=== PATIENT | male | born 1980 | race Caucasian/White ===

== ENCOUNTER 2017-07-13 17:39 | Observation (INO) | payer BC ==
[2017-07-13] MEDS ORDERED: NS 100 ML IV 100 ML IV ONE (17:50)
--- NOTE | 2017-07-13 18:33 | CT ---
HISTORY: Suspected appendicitis, patient complains of right lower quadrant pain Study: CT abdomen and pelvis with IV and oral contrast Comparison: No priors Technique: Multiple axial images of the abdomen and pelvis were obtained from the lung bases to the pubic symphy sis during the administration of IV contrast. Oral contrast materials were also given. Coronal and s agittal images are also reviewed. Dose reduction techniques utilized automatic exposure control. Findings: The visualized portions of the lung bases are unremarkable. There is low attenuation density througho ut the liver, compatible with steatosis. No mass or ductal ectasia is seen. The spleen, pancreas, kid neys, and adrenal glands are unremarkable in their CT appearance. The gallbladder is contracted. No e vidence of gallstone is seen.. No significant mesenteric lymphadenopathy or stranding can be observe d. No free fluid or free air is seen within the abdomen. No bowel wall thickening or bowel dilatati on is present. Appendix is at the upper limits of normal in size measuring about 7.5 mm in diameter. No evidence of significant periappendiceal stranding or fluid collection is seen. The findings are co nsidered equivocal for appendicitis. Uncomplicated appearing sigmoid colon diverticulosis is seen. N o evidence of diverticulitis, abscess or fluid is seen.. The urinary bladder is grossly unremarkable. The bony structures are grossly intact. IMPRESSION: Upper limits normal diameter of the appendix (7.5 mm). The absence of periappendiceal inflammatory ch anges makes this finding is equivocal for appendicitis. No evidence of periappendiceal fluid is seen. Uncomplicated appearing sigmoid colon diverticulosis. Hepatic steatosis. Reported By:
[2017-07-13] MEDS ORDERED: ZOFRAN INJ 4 MG VIAL IVP PRN (19:29)
[2017-07-13] MEDS ORDERED: MORPHINE SULFATE INJ 2 MG INJ IVP PRN (19:29)
[2017-07-13 20:06] VITALS: BMI 37.8
[2017-07-13 20:21] LABS: BASOPHILS # (AUTO) 0.1 X10^3/uL (0.0-0.1); BASOPHILS % (AUTO) 0.8 % (0.2-1.0); EOSINOPHILS # (AUTO) 0.1 x10^3/uL (0.0-0.2); EOSINOPHILS % (AUTO) 1.6 % (0.9-2.9); HEMATOCRIT 43.9 % (42.0-54.0); HEMOGLOBIN 15.4 g/dL (13.5-18.0); LYMPHOCYTES # (AUTO) 1.8 X10^3/uL (1.3-2.9); LYMPHOCYTES % (AUTO) 26.7 % (21.0-51.0); MEAN CORPUSCULAR HEMOGLOBIN 28.1 pg (27.0-34.0); MEAN CORPUSCULAR VOLUME 80.4 fL (80.0-100.0); MEAN PLATELET VOLUME 9.1 fL (7.4-11.0); MONOCYTES # (AUTO) 0.5 x10^3/uL (0.3-0.8); MONOCYTES % (AUTO) 7.3 % (0.0-13.0); NEUTROPHILS # (AUTO) 4.3 x10^3/uL (2.2-4.8); NEUTROPHILS % (AUTO) 63.6 % (42.0-75.0); PLATELET COUNT 244 X10^3/uL (150.0-450.0); RED BLOOD COUNT 5.47 X10^6/uL (4.7-6.0); RED CELL DISTRIBUTION WIDTH 13.8 % (11.6-16.5); WHITE BLOOD COUNT 6.8 X10^3/uL (3.6-10.0)
[2017-07-13 20:31] LABS: ALANINE AMINOTRANSFERASE 84 Units/L (12-78); ALBUMIN 4.2 g/dL (3.4-5.0); ALKALINE PHOSPHATASE 82 Units/L (46-116); BLOOD UREA NITROGEN 18 mg/dL (7-18); CALCIUM 8.7 mg/dL (8.5-10.1); CARBON DIOXIDE 28.6 mmol/L (21-32); CHLORIDE 100 mmol/L (98-107); COR NA(FOR HYPERGLY) 137 mmol/L (136-145); CREATININE 1.11 mg/dL (0.70-1.30); SODIUM 136 mmol/L (136-145); TOTAL PROTEIN 8.5 g/dL (6.4-8.2); eGFR BLACK RACES > 60 (>60); eGFR NON BLACK RACES > 60 (>60)
[2017-07-13 20:49] LABS: ASPARTATE AMINO TRANSFERASE 39 Units/L (15-37)
[2017-07-13] MEDS: NS 1000 ML 1,000 ML IV SCH (20:51)
[2017-07-13 21:35] LABS: AMYLASE 83 Units/L (25-115); LIPASE 152 Units/L (73-393)
--- NOTE | 2017-07-13 22:16 | RAD ---
Chest, one view Indication: Preoperative evaluation for appendectomy Comparison: None Findings: Heart size is normal. Lungs are mildly hypoinflated but clear. No pleural effusion or pneum othorax identified. There is no acute osseous abnormality. Impression: No acute chest process. Reported By:
[2017-07-14] MEDS: NS 1000 ML 1,000 ML IV SCH ×2 (03:17→10:01)
[2017-07-14 06:17] LABS: BASOPHILS % (AUTO) 0.6 % (0.2-1.0); EOSINOPHILS # (AUTO) 0.2 x10^3/uL (0.0-0.2); EOSINOPHILS % (AUTO) 2.2 % (0.9-2.9); HEMATOCRIT 43.9 % (42.0-54.0); HEMOGLOBIN 14.9 g/dL (13.5-18.0); LYMPHOCYTES # (AUTO) 2.3 X10^3/uL (1.3-2.9); LYMPHOCYTES % (AUTO) 33.5 % (21.0-51.0); MEAN CORPUSCULAR HEMOGLOBIN 27.9 pg (27.0-34.0); MEAN PLATELET VOLUME 10.1 fL (7.4-11.0); MONOCYTES # (AUTO) 0.5 x10^3/uL (0.3-0.8); MONOCYTES % (AUTO) 7.2 % (0.0-13.0); NEUTROPHILS # (AUTO) 3.9 x10^3/uL (2.2-4.8); NEUTROPHILS % (AUTO) 56.5 % (42.0-75.0); PLATELET COUNT 213 X10^3/uL (150.0-450.0); RED BLOOD COUNT 5.35 X10^6/uL (4.7-6.0); RED CELL DISTRIBUTION WIDTH 13.6 % (11.6-16.5)
[2017-07-14 06:18] LABS: ALANINE AMINOTRANSFERASE 74 Units/L (12-78); ALBUMIN 3.7 g/dL (3.4-5.0); ALKALINE PHOSPHATASE 74 Units/L (46-116); ASPARTATE AMINO TRANSFERASE 29 Units/L (15-37); BLOOD UREA NITROGEN 14 mg/dL (7-18); CALCIUM 8.5 mg/dL (8.5-10.1); CARBON DIOXIDE 28.2 mmol/L (21-32); CHLORIDE 104 mmol/L (98-107); COR NA(FOR HYPERGLY) 141 mmol/L (136-145); CREATININE 1.04 mg/dL (0.70-1.30); SODIUM 140 mmol/L (136-145); TOTAL PROTEIN 7.7 g/dL (6.4-8.2); eGFR BLACK RACES > 60 (>60); eGFR NON BLACK RACES > 60 (>60)
[2017-07-14 06:43] LABS: PLATELET MORPHOLOGY COMMENT NORMAL (NORMAL)
--- NOTE | 2017-07-14 08:15 | DR.UPDATE ---
H&P Update History and Physical Update: WAS SEEN IN THE OFFICE TODAY FOR ABDOMINAL PAIN. HE WAS SENT FOR AN OUTPATIENT ABD/PELVIS CT WHICH REVEALED ACUTE APPENDICITIS. HE WAS ADMITTED FOR FURTHER EVALUATION AND TREATMENT. WE WILL OBTAIN A SURGICAL CONSULT. H&P WAS COMPLETED PRIOR TO ADMISSION. PATIENT HAS BEEN SEEN AND EXAMINED WITH NO CHANGES NOTED TO H&P. Changes noted: NO Yes with the following:
[2017-07-14] MEDS ORDERED: QUELICIN (OR ANECTINE) ONE (10:42)
[2017-07-14] MEDS ORDERED: ZOFRAN INJ 4 MG VIAL ONE (10:42)
[2017-07-14] MEDS ORDERED: XYLOCAINE 2 % (PLAIN) ONE (10:42)
[2017-07-14] MEDS ORDERED: DIPRIVAN VIAL ONE (10:42)
[2017-07-14] MEDS ORDERED: ROBINUL ONE (10:42)
[2017-07-14] MEDS ORDERED: TORADOL 30 MG VIAL ONE (10:42)
[2017-07-14] MEDS ORDERED: VERSED ONE (10:42)
[2017-07-14] MEDS ORDERED: SUPRANE IN ONE (10:42)
[2017-07-14] MEDS ORDERED: NORCURON INJ 10 MG VIAL ONE (10:42)
[2017-07-14] MEDS ORDERED: NEOSTIGMINE INJ ONE (10:42)
--- NOTE | 2017-07-14 12:26 | US ---
Right upper quadrant sonogram Indication: Right lower quadrant pain Comparison: None available Technique: Multiple guerra scale and color flow Doppler images of the right upper quadrant were obtaine d. Findings: The liver demonstrates diffuse increased echogenicity consistent with steatosis, no focal hepatic les ion is identified. No intrahepatic bile duct dilatation. The gallbladder fails to demonstrate evidence for cholelithiasis or layering sludge.No pericholecysti c fluid or gallbladder wall thickening can be observed. The common bile duct is unremarkable measuring 5 mm. The right kidney measures 5.5 cm in greatest dimension without evidence of hydronephrosis nephrolithi asis or mass. The visualized pancreas is within normal limits. IVC is patent. Impression: Hepatic steatosis otherwise no sonographic abnormality within the right upper quadrant. Reported By:
[2017-07-14] MEDS ORDERED: LR 1000 ML IV 1,000 ML IV ONE (13:27)
[2017-07-14] MEDS ORDERED: NS 100 ML IV 100 ML IV ONE (13:28)
[2017-07-14] MEDS ORDERED: ANCEF VIAL 1 GM ONE (13:28)
[2017-07-14] MEDS ORDERED: FENTANYL INJ 250 mcg ONE (13:45)
[2017-07-14] MEDS ORDERED: NS IRRIGATION 1000 ML 1,000 ML IR ONE (14:29)
[2017-07-14] MEDS ORDERED: BACTROBAN OINT ONE (14:39)
[2017-07-14] MEDS ORDERED: BENADRYL INJ 50 MG VIAL IVP PRN (14:49)
[2017-07-14] MEDS ORDERED: PHENERGAN INJ 25 MG IVP PRN (14:49)
[2017-07-14] MEDS ORDERED: ZOFRAN INJ 4 MG VIAL IVP PRN (14:49)
[2017-07-14] MEDS ORDERED: DILAUDID INJ IVP PRN ×2 (14:49→14:55)
[2017-07-14] MEDS ORDERED: REGLAN INJ 10 MG VIAL IVP PRN (14:49)
[2017-07-14] MEDS ORDERED: DILAUDID INJ IVP ONE ×2 (14:50→15:10)
--- NOTE | 2017-07-14 15:05 | OR.GENERIC ---
Post-Op Note Generic - Post-Op Note Operative Report: Lap Appendectomy was done .. finding acute appendecitis , the rest of findings are normal . EBL 20 cc. on IV Zosyn . NPO except small amount of water .
--- NOTE | 2017-07-14 17:45 | PCM.PROG ---
Progress Note - Progress Note for Day of Date: 07/14/17 - Subjective Subjective: WAS A DIRECT ADMISSION FOR ACUTE APPENDICITIS. TODAY, HE IS ALERT AND ORIENTED, LYING IN BED ON MORNING ROUNDS. TODAY, HE IS NOTED WITH COMPLAINTS OF RIGHT UPPER AND LOWER ABDOMINAL PAIN. ON EXAMINATION, HEART IS REGULAR IN RATE AND RHYTHM. BILATERAL LUNGS ARE CLEAR TO AUSCULTATION. ABDOMEN IS ROUND, SOFT, AND NOTED WITH MODERATE TENDERNESS TO THE RIGHT UPPER AND RIGHT LOWER QUADRANTS. NORMAL BOWEL SOUNDS NOTED IN ALL QUADRANTS. HIS VITALS TODAY ARE 98.2-78-18-97%-111/58. LABS WERE OBTAINED. ABNORMAL LAB VALUES INCLUDE THE FOLLOWING: GLUCOSE 132, ALBUMIN/GLOBULIN RATIO 0.90. CHEST XRAY CLEAR. EKG REVEALS NORMAL SINUS RHYTHM WITH HR 83. CONSULTED WITH PATIENT THIS MORNING AND ORDERED A GALLBLADDER ULTRASOUND. HE PLANS TO TAKE PATIENT TO THE OR THIS AFTERNOON FOR A LAPROSCOPIC APPENDECTOMY. WE ARE IN AGREEMENT WITH PLAN. OTHERWISE, WE WILL CONTINUE WITH CURRENT PLAN OF CARE AND CONTINUE TO MONITOR PATIENT. - Past Medical Family Social History Past Med/Fam/Surg Hx: No changes since H&P Allergies: Allergies Sulfa (Sulfonamide Antibiotics) [SULFA] Allergy (Verified 07/13/17 19:25) - Review of Systems ROS: No change since H&P - Vital Signs and I&O's Vital Signs: Temperature 98.1 F Pulse Rate [Right Brachial] 76 Pulse Rate [Left Brachial] 76 Pulse Rate [Bilateral] 70 Pulse Rate 62 Respiratory Rate 18 Blood Pressure [Right Arm] 114/60 Blood Pressure [Left Arm] 118/69 Blood Pressure 124/71 O2 Sat by Pulse Oximetry 97 Intake and Output: Intake & Output 07/12/17 07/13/17 07/14/17 07/15/17 11:59 11:59 11:59 11:59 Intake Total 0 1100 Output Total 100 Balance 0 1000 - Physical Exam Oriented: Normal Eyes: Normal Ear: Normal Nose: Normal Throat: Normal Respiratory: Normal Cardiovascular: Normal : Normal Auscultation: Bowel Sounds: Normal Palpation: Normal Tenderness: RUQ, RLQ, Moderate, Rebound. negative: Guarding, Rigidity Skin: Normal Musculoskeletal: Normal Psychiatric: Normal Mood Description: Calm Affect: Normal Speech Pattern: Clear, Appropriate - Laboratory and Diagnostics Result Diagrams: 07/14/17 04:22 07/14/17 04:22 Labs: Laboratory WBC 7.0 X10^3/uL (3.6-10.0) 07/14/17 04:22 RBC 5.35 X10^6/uL (4.7-6.0) 07/14/17 04:22 Hgb 14.9 g/dL (13.5-18.0) 07/14/17 04:22 Hct 43.9 % (42.0-54.0) 07/14/17 04:22 MCV 82.0 fL (80.0-100.0) 07/14/17 04:22 MCH 27.9 pg (27.0-34.0) 07/14/17 04:22 MCHC 34.0 g/dL (33.0-35.0) 07/14/17 04:22 RDW 13.6 % (11.6-16.5) 07/14/17 04:22 Plt Count 213 X10^3/uL (150.0-450.0) 07/14/17 04:22 Plt Count Comment Adequate (ADEQUATE) 07/14/17 04:22 MPV 10.1 fL (7.4-11.0) 07/14/17 04:22 Neut % (Auto) 56.5 % (42.0-75.0) 07/14/17 04:22 Lymph % (Auto) 33.5 % (21.0-51.0) 07/14/17 04:22 [place] % (Auto) 7.2 % (0.0-13.0) 07/14/17 04:22 Eos % (Auto) 2.2 % (0.9-2.9) 07/14/17 04:22 Baso % (Auto) 0.6 % (0.2-1.0) 07/14/17 04:22 Neut # (Auto) 3.9 x10^3/uL (2.2-4.8) 07/14/17 04:22 Lymph # (Auto) 2.3 X10^3/uL (1.3-2.9) 07/14/17 04:22 [place] # (Auto) 0.5 x10^3/uL (0.3-0.8) 07/14/17 04:22 Eos # (Auto) 0.2 x10^3/uL (0.0-0.2) 07/14/17 04:22 Baso # (Auto) 0.0 X10^3/uL (0.0-0.1) 07/14/17 04:22 Absolute Nucleated RBC 0.2 /100WBC 07/14/17 04:22 Plt Clumps, EDTA Rare 07/14/17 04:22 Plt Morphology Comment Normal (NORMAL) 07/14/17 04:22 RBC Morphology Normal (NORMAL) 07/14/17 04:22 Sodium 140 mmol/L (136-145) 07/14/17 04:22 Corrected Sodium 141 mmol/L (136-145) 07/14/17 04:22 Potassium 4.0 mmol/L (3.5-5.1) 07/14/17 04:22 Chloride 104 mmol/L (98-107) 07/14/17 04:22 Carbon Dioxide 28.2 mmol/L (21-32) 07/14/17 04:22 BUN 14 mg/dL (7-18) 07/14/17 04:22 Creatinine 1.04 mg/dL (0.70-1.30) 07/14/17 04:22 Est GFR (MDRD) Af Amer > 60 (>60) 07/14/17 04:22 Est GFR (MDRD) Non-Af > 60 (>60) 07/14/17 04:22 Glucose 132 mg/dL (65-99) H 07/14/17 04:22 Calcium 8.5 mg/dL (8.5-10.1) 07/14/17 04:22 Corrected Calcium TNP 07/14/17 04:22 Total Bilirubin 0.40 mg/dL (0.2-1.0) 07/14/17 04:22 AST 29 Units/L (15-37) 07/14/17 04:22 ALT 74 Units/L (12-78) 07/14/17 04:22 Alkaline Phosphatase 74 Units/L (46-116) 07/14/17 04:22 Total Protein 7.7 g/dL (6.4-8.2) 07/14/17 04:22 Albumin 3.7 g/dL (3.4-5.0) 07/14/17 04:22 Globulin 4.0 g/dL (2.5-4.5) 07/14/17 04:22 Albumin/Globulin Ratio 0.9 Ratio (1.1-2.1) L 07/14/17 04:22 Amylase 83 Units/L (25-115) 07/13/17 20:00 Lipase 152 Units/L (73-393) 07/13/17 20:00 Tissue Pathology To follow 07/14/17 15:01 - Plan (1) Acute appendicitis Status: Acute Qualifiers: Acute appendicitis type: unspecified acute appendicitis type Qualified Code (s): K35.80 - Unspecified acute appendicitis Plan: LAPROSCOPIC APPENDECTOMY TODAY, CONTINUE PAIN MEDICATION, CONTINUE TO MONITOR
[2017-07-14] MEDS ORDERED: TYLENOL 325 MG TAB PO PRN (20:15)
[2017-07-14] MEDS: ZOSYN VIAL 3.375 GM 3.375 GM in NS 100 ML IV + SPIKE MINIBAG* 100 ML IV SCH (21:41)
[2017-07-15] MEDS: NS 1000 ML 1,000 ML IV SCH ×2 (00:15→08:59)
[2017-07-15 05:35] LABS: BASOPHILS % (AUTO) 0.5 % (0.2-1.0); EOSINOPHILS # (AUTO) 0.1 x10^3/uL (0.0-0.2); EOSINOPHILS % (AUTO) 1.4 % (0.9-2.9); HEMATOCRIT 40.4 % (42.0-54.0); LYMPHOCYTES # (AUTO) 1.5 X10^3/uL (1.3-2.9); LYMPHOCYTES % (AUTO) 21.3 % (21.0-51.0); MEAN CORPUSCULAR HEMOGLOBIN 27.9 pg (27.0-34.0); MEAN CORPUSCULAR HGB CONC 34.5 g/dL (33.0-35.0); MEAN CORPUSCULAR VOLUME 80.8 fL (80.0-100.0); MEAN PLATELET VOLUME 9.4 fL (7.4-11.0); MONOCYTES # (AUTO) 0.5 x10^3/uL (0.3-0.8); MONOCYTES % (AUTO) 6.5 % (0.0-13.0); NEUTROPHILS # (AUTO) 4.9 x10^3/uL (2.2-4.8); NEUTROPHILS % (AUTO) 70.3 % (42.0-75.0); PLATELET COUNT 200 X10^3/uL (150.0-450.0); RED BLOOD COUNT 5.01 X10^6/uL (4.7-6.0); RED CELL DISTRIBUTION WIDTH 13.8 % (11.6-16.5); WHITE BLOOD COUNT 6.9 X10^3/uL (3.6-10.0)
[2017-07-15] MEDS: ZOSYN VIAL 3.375 GM 3.375 GM in NS 100 ML IV + SPIKE MINIBAG* 100 ML IV SCH (05:35)
[2017-07-15 05:52] LABS: ALANINE AMINOTRANSFERASE 70 Units/L (12-78); ALBUMIN 3.5 g/dL (3.4-5.0); ALKALINE PHOSPHATASE 60 Units/L (46-116); ASPARTATE AMINO TRANSFERASE 28 Units/L (15-37); BLOOD UREA NITROGEN 13 mg/dL (7-18); CALCIUM 8.4 mg/dL (8.5-10.1); CARBON DIOXIDE 27.5 mmol/L (21-32); CHLORIDE 105 mmol/L (98-107); COR NA(FOR HYPERGLY) 141 mmol/L (136-145); CREATININE 1.19 mg/dL (0.70-1.30); SODIUM 140 mmol/L (136-145); TOTAL PROTEIN 7.3 g/dL (6.4-8.2); eGFR BLACK RACES > 60 (>60); eGFR NON BLACK RACES > 60 (>60)
--- NOTE | 2017-07-15 08:55 | DR.PROGNOT ---
Hospital Progress Notes - Progress Note for Day of: Progress Note Date: 07/15/17 - Chief Complaint Chief Complaint: PO Lap Appendectomy for acute appendecitis .. doing very well today . no nausea or vomiting , afebrile and OOB. - Past Medical Family Social History Past Med/Fam/Surg Hx: No changes since H&P Allergies: Allergies Sulfa (Sulfonamide Antibiotics) [SULFA] Allergy (Verified 07/13/17 19:25) - Review Of Systems ROS: No change since H&P - Vital Signs Vital Signs: Temperature 98.3 F Pulse Rate [Right Brachial] 63 Pulse Rate [Left Brachial] 76 Pulse Rate [Bilateral] 70 Pulse Rate 78 Respiratory Rate 16 Blood Pressure [Right Arm] 114/63 Blood Pressure [Left Arm] 118/69 Blood Pressure 124/71 O2 Sat by Pulse Oximetry 95 - Physical Exam Oriented: Normal Eyes: Normal Ear: Normal Nose: Normal Throat: Normal Respiratory: Normal Cardiovascular: Normal : Normal GI:Auscultation: Normal GI:Palpation: Normal GI: Tenderness: Diffuse, Moderate (generalized tenderness , clean incision . the rest of exam is normal.). negative: Guarding, Rigidity Skin: Normal Musculoskeletal: Normal Psychiatric: Normal Mood Description: Calm Affect: Normal Speech Pattern: Clear, Appropriate - Laboratory and Diagnostics Result Diagrams: 07/15/17 04:57 07/15/17 04:57 Labs: 07/13/17 20:08 Blood Blood Culture - Preliminary 07/13/17 20:00 Blood Blood Culture - Preliminary Laboratory WBC 6.9 X10^3/uL (3.6-10.0) 07/15/17 04:57 RBC 5.01 X10^6/uL (4.7-6.0) 07/15/17 04:57 Hgb 14.0 g/dL (13.5-18.0) 07/15/17 04:57 Hct 40.4 % (42.0-54.0) L 07/15/17 04:57 MCV 80.8 fL (80.0-100.0) 07/15/17 04:57 MCH 27.9 pg (27.0-34.0) 07/15/17 04:57 MCHC 34.5 g/dL (33.0-35.0) 07/15/17 04:57 RDW 13.8 % (11.6-16.5) 07/15/17 04:57 Plt Count 200 X10^3/uL (150.0-450.0) 07/15/17 04:57 Plt Count Comment Adequate (ADEQUATE) 07/14/17 04:22 MPV 9.4 fL (7.4-11.0) 07/15/17 04:57 Neut % (Auto) 70.3 % (42.0-75.0) 07/15/17 04:57 Lymph % (Auto) 21.3 % (21.0-51.0) 07/15/17 04:57 [place] % (Auto) 6.5 % (0.0-13.0) 07/15/17 04:57 Eos % (Auto) 1.4 % (0.9-2.9) 07/15/17 04:57 Baso % (Auto) 0.5 % (0.2-1.0) 07/15/17 04:57 Neut # (Auto) 4.9 x10^3/uL (2.2-4.8) H 07/15/17 04:57 Lymph # (Auto) 1.5 X10^3/uL (1.3-2.9) 07/15/17 04:57 [place] # (Auto) 0.5 x10^3/uL (0.3-0.8) 07/15/17 04:57 Eos # (Auto) 0.1 x10^3/uL (0.0-0.2) 07/15/17 04:57 Baso # (Auto) 0.0 X10^3/uL (0.0-0.1) 07/15/17 04:57 Absolute Nucleated RBC 0.0 /100WBC 07/15/17 04:57 Plt Clumps, EDTA Rare 07/14/17 04:22 Plt Morphology Comment Normal (NORMAL) 07/14/17 04:22 RBC Morphology Normal (NORMAL) 07/14/17 04:22 Sodium 140 mmol/L (136-145) 07/15/17 04:57 Corrected Sodium 141 mmol/L (136-145) 07/15/17 04:57 Potassium 4.4 mmol/L (3.5-5.1) 07/15/17 04:57 Chloride 105 mmol/L (98-107) 07/15/17 04:57 Carbon Dioxide 27.5 mmol/L (21-32) 07/15/17 04:57 BUN 13 mg/dL (7-18) 07/15/17 04:57 Creatinine 1.19 mg/dL (0.70-1.30) 07/15/17 04:57 Est GFR (MDRD) Af Amer > 60 (>60) 07/15/17 04:57 Est GFR (MDRD) Non-Af > 60 (>60) 07/15/17 04:57 Glucose 133 mg/dL (65-99) H 07/15/17 04:57 Calcium 8.4 mg/dL (8.5-10.1) L 07/15/17 04:57 Corrected Calcium TNP 07/15/17 04:57 Total Bilirubin 0.50 mg/dL (0.2-1.0) 07/15/17 04:57 AST 28 Units/L (15-37) 07/15/17 04:57 ALT 70 Units/L (12-78) 07/15/17 04:57 Alkaline Phosphatase 60 Units/L (46-116) 07/15/17 04:57 Total Protein 7.3 g/dL (6.4-8.2) 07/15/17 04:57 Albumin 3.5 g/dL (3.4-5.0) 07/15/17 04:57 Globulin 3.8 g/dL (2.5-4.5) 07/15/17 04:57 Albumin/Globulin Ratio 0.9 Ratio (1.1-2.1) L 07/15/17 04:57 Amylase 83 Units/L (25-115) 07/13/17 20:00 Lipase 152 Units/L (73-393) 07/13/17 20:00 Tissue Pathology To follow 07/14/17 15:01 - Assessment and Plan 1: acute appendecitis , S/P lap Appendectomy . will D/C and follow in 8 days . only liquid diet today - Problem Patient Problems: Patient Problems Acute appendicitis (Acute) K35.80
[2017-07-15 14:02] VITALS: BP 134/83
== END 2017-07-15 10:35 | disposition home or self-care (01) ==
LOC: RAD 17:39 → MED/SURG 19:22
PROVIDERS: ADMIT Internal Medicine; ATTEND Internal Medicine
PROC: 0DTJ4ZZ Resection of Appendix, Percutaneous Endoscopic Approach (ICD-10-PCS; principal; 2017-07-14 13:30)
DX: K35.89 Other acute appendicitis (principal); R10.84 Generalized abdominal pain; R30.0 Dysuria; E66.8 Other obesity
CPT/HCPCS: 36415; 71045; 74177; 76705; 80053; 82150; 83690; 85025; 87040; 93005; A4216; A4222; G0378; J0330; J0690; J1170; J1885; J2001; J2250; J2405; J2543; J2710; J3010; J3490; J7120